=== PATIENT | male | born 1940 | race Caucasian/White ===

== ENCOUNTER 2018-05-14 14:16 | Inpatient (IN) ==
--- NOTE | 2018-05-14 14:47 | Emergency Department Note ---
Disposition Clinical Impression: Dyspnea Qualifiers: Dyspnea type: unspecified Qualified Code(s): R06.00 - Dyspnea, unspecified Disposition: Admitted As Inpatient Condition: Fair General Adult HPI - General Chief complaint: ED Shortness of Breath/Dyspnea Stated complaint: KIM Time Seen by Provider: 05/14/18 14:38 Source: patient, EMS Limitations: no limitations - History of Present Illness Pain Scale: 0 - Related Data Home Medications Medication Instructions Recorded Confirmed Aspirin [Lo-Dose Aspirin EC] 81 mg PO DAILY 01/06/17 05/14/18 Apixaban [Eliquis] 5 mg PO BID 12/03/17 05/14/18 Calcium Citrate 200 mg PO DAILY 12/03/17 05/14/18 Donepezil [Aricept] 10 mg PO HS 12/03/17 05/14/18 Ergocalciferol (VITAMIN D2) 8,000 unit PO DAILY 12/03/17 05/14/18 [Vitamin D2] Ezetimibe [Zetia] 10 mg PO DAILY 12/03/17 05/14/18 Furosemide [Lasix] 20 mg PO DAILY 12/03/17 05/14/18 Pnv95/Ferrous Fumarate/FA 1 each PO DAILY 12/03/17 05/14/18 [ Vitamin Tablet] Prosteon 2 tab PO DAILY 01/14/18 05/14/18 Docusate Sodium [Colace] 100 mg PO DAILY PRN 05/14/18 05/14/18 GuaiFENesin ER [Mucinex] 600 mg PO BID PRN 05/14/18 05/14/18 LevETIRAcetam [Roweepra] 500 mg PO BID 05/14/18 05/14/18 Morphine Sulfate SR (12 HR) [MS 15 mg PO Q12HR 05/14/18 05/14/18 Contin] Sennosides [Senna] 17.2 mg PO HS PRN 05/14/18 05/14/18 Previous Rx's Medication Instructions Recorded Omeprazole [PriLOSEC] 20 mg PO DAILY #30 capsule. 02/06/17 Carisoprodol [Soma] 350 mg PO BID PRN #60 05/09/17 Cyanocobalamin (Vitamin B-12) 1,000 mcg PO DAILY #30 tablet 07/08/17 [Vitamin B12] predniSONE [PredniSONE] 5 mg PO BIDWM #60 tablet 01/06/18 Dexamethasone [Decadron] 2 tab PO AD #36 tab 02/02/18 Promethazine [Phenergan] 25 mg PO Q6HR PRN #30 tablet 03/09/18 OxyCODONE Immed Rel [Roxicodone 10 10 mg PO Q6H PRN 30 Days #120 tab 05/05/18 MG] Ondansetron ODT [Zofran ODT] 4 mg PO Q6H PRN #10 tab.rapdis 05/11/18 Allergies Allergy/AdvReac Type Severity Reaction Status Date / Time atorvastatin AdvReac Muscle Pain Verified 05/14/18 19:39 simvastatin AdvReac Muscle Pain Verified 05/14/18 19:39 Past Medical History - Past Medical History Medical history: Reports: cancer, COPD, hyperlipidemia, hypertension, other Surgical history: Reports: appendectomy, cancer surgery, orthopedic, other, other Psychiatric history: Reports: no psych history - Social History Smoking Status: Current every day smoker Smokeless Tobacco Status: No Alcohol use: Reports: none Drug use: Reports: none Physical Exam - General Limitations: no limitations General appearance: alert, in no apparent distress Course Vital Signs Temperature 98.9 F 05/14/18 14:24 Pulse Rate 61 05/14/18 14:24 Respiratory Rate 20 05/14/18 14:24 Blood Pressure 116/73 05/14/18 14:24 O2 Sat by Pulse Oximetry 95 05/14/18 14:24 Temperature 98.9 F 05/14/18 14:24 Pulse Rate 62 05/14/18 19:19 Respiratory Rate 16 05/14/18 20:23 Blood Pressure 105/64 05/14/18 20:23 O2 Sat by Pulse Oximetry 96 05/14/18 19:19 Oxygen Delivery Oxygen Delivery Nasal Cannula Medical Decision Making - Lab Data Result diagrams: 05/14/18 14:38 05/14/18 14:38 Lab Results 05/14/18 05/14/18 05/14/18 Range/Units 14:38 14:38 14:47 WBC 3.1 L (4.3-11.1) K/mcL RBC 3.30 L (4.19-5.50) M/mcL Hgb 10.1 L (12.9-16.9) g/dL Hct 32.5 L (37.5-50.1) % MCV 98.5 (83.0-100.0) fL MCH 30.6 (28.0-33.3) pg MCHC 31.1 L (31.6-35.5) g/dL RDW 16.0 H (11.5-14.5) % Plt Count 229 (140-400) K/mcL MPV 9.4 (9.4-12.4) fL Sodium 137 (136-145) mEq/L Potassium 4.2 (3.5-5.1) mEq/L Chloride 100 (98-107) mEq/L Carbon Dioxide 34 H (23-29) mEq/L BUN 17 (8-23) mg/dL Creatinine 0.74 (0.70-1.30) mg/dL Est GFR ( Amer) > 60 (> 60) Est GFR (Non-Af Amer) > 60 (> 60) BUN/Creatinine Ratio 23 (6-26) Glucose 89 (70-105) mg/dL Calculated Osmolality 285 (280-300) Calcium 8.8 (8.6-10.3) mg/dL Total Bilirubin 0.3 (0.3-1.0) mg/dL Direct Bilirubin 0.1 (0.0-0.2) mg/dL Indirect Bilirubin 0.2 (0.0-1.2) mg/dL AST 32 (13-39) Units/L ALT 35 (7-52) Units/L Alkaline Phosphatase 58 (34-104) Units/L Troponin I 0.07 H* (< 0.04) ng/mL Serum Total Protein 5.5 L (6.4-8.9) g/dL Albumin 3.2 L (3.5-5.7) g/dL Globulin 2.3 L (2.4-3.5) g/dL Albumin/Globulin Ratio 1.4 (1.1-2.2) Urine Color (Yellow) Urine Clarity (Clear) Urine pH (5.0-8.0) pH Units Ur Specific [place] (1.010-1.025) Urine Protein (Neg-Trace) mg/dL Urine Glucose (UA) (Normal) mg/dL Urine Ketones (Negative) mg/dL Urine Blood (Negative) Urine Nitrite (Negative) Urine Bilirubin (Negative) Urine Urobilinogen (Normal) mg/dL Ur Leukocyte Esterase (Negative) Urine Microscopic RBC (0-3) per hpf Urine Microscopic WBC (0-3) per hpf Ur Squamous Epith Cells (None-Few) per lpf Urine Bacteria (None-Few) per hpf Hyaline Casts (None-Few) per lpf Urine Mucus (Few) 05/14/18 Range/Units 16:05 WBC (4.3-11.1) K/mcL RBC (4.19-5.50) M/mcL Hgb (12.9-16.9) g/dL Hct (37.5-50.1) % MCV (83.0-100.0) fL MCH (28.0-33.3) pg MCHC (31.6-35.5) g/dL RDW (11.5-14.5) % Plt Count (140-400) K/mcL MPV (9.4-12.4) fL Sodium (136-145) mEq/L Potassium (3.5-5.1) mEq/L Chloride (98-107) mEq/L Carbon Dioxide (23-29) mEq/L BUN (8-23) mg/dL Creatinine (0.70-1.30) mg/dL Est GFR ( Amer) (> 60) Est GFR (Non-Af Amer) (> 60) BUN/Creatinine Ratio (6-26) Glucose (70-105) mg/dL Calculated Osmolality (280-300) Calcium (8.6-10.3) mg/dL Total Bilirubin (0.3-1.0) mg/dL Direct Bilirubin (0.0-0.2) mg/dL Indirect Bilirubin (0.0-1.2) mg/dL AST (13-39) Units/L ALT (7-52) Units/L Alkaline Phosphatase (34-104) Units/L Troponin I (< 0.04) ng/mL Serum Total Protein (6.4-8.9) g/dL Albumin (3.5-5.7) g/dL Globulin (2.4-3.5) g/dL Albumin/Globulin Ratio (1.1-2.2) Urine Color Yellow (Yellow) Urine Clarity Clear (Clear) Urine pH 6.0 (5.0-8.0) pH Units Ur Specific [place] 1.023 (1.010-1.025) Urine Protein 30 H (Neg-Trace) mg/dL Urine Glucose (UA) Normal (Normal) mg/dL Urine Ketones Negative (Negative) mg/dL Urine Blood Negative (Negative) Urine Nitrite Negative (Negative) Urine Bilirubin Negative (Negative) Urine Urobilinogen Normal (Normal) mg/dL Ur Leukocyte Esterase Negative (Negative) Urine Microscopic RBC 0-3 (0-3) per hpf Urine Microscopic WBC 0-3 (0-3) per hpf Ur Squamous Epith Cells Many H (None-Few) per lpf Urine Bacteria None Seen (None-Few) per hpf Hyaline Casts Moderate H (None-Few) per lpf Urine Mucus Few (Few) Attestation Statement - Attestation Attestation: I examined this patient and my medical decision-making was reviewed with the [employer]ANSCRIBER/PA/Advanced Practice Nurse/Resident Physician. I agree with the documented findings, disposition and treatment plan as described except to the extent set forth below. I did review the previous record and the patient does have a history of metastatic prostate cancer was sent here today for the urology office and I did see the patient upon arrival and also spoke with the paramedics and they state that the patient was transferred here because of nausea. He said he has generalized pain that he does not know exactly why he is here. He does specifically deny any chest pain. No fever, vomiting. States his will be able to give a better history. Paramedics tell me that he was mildly hypoxemic however he does use home oxygen. Workup in progress including blood work, x-ray , EKG. [id number] I did review the patient's EKG showing a paced rhythm with a rate of 61 1503
[2018-05-14 15:39] LABS: Hematocrit 32.5 % (37.5-50.1); Hemoglobin 10.1 g/dL (12.9-16.9); Mean Corpuscular HGB Conc 31.1 g/dL (31.6-35.5); Mean Corpuscular Hemoglobin 30.6 pg (28.0-33.3); Mean Corpuscular Volume 98.5 fL (83.0-100.0); Mean Platelet Volume 9.4 fL (9.4-12.4); Platelet Count 229 K/mcL (140-400)
[2018-05-14 16:02] LABS: Alanine Aminotransferase 35 Units/L (7-52); Albumin 3.2 g/dL (3.5-5.7); Albumin/Globulin Ratio 1.4 (1.1-2.2); Alkaline Phosphatase 58 Units/L (34-104); Aspartate Amino Transferase 32 Units/L (13-39); BUN/Creatinine Ratio 23 (6-26); Bilirubin,Direct 0.1 mg/dL (0.0-0.2); Bilirubin,Indirect 0.2 mg/dL (0.0-1.2); Bilirubin,Total 0.3 mg/dL (0.3-1.0); Blood Urea Nitrogen 17 mg/dL (8-23); Calcium 8.8 mg/dL (8.6-10.3); Carbon Dioxide 34 mEq/L (23-29); Chloride 100 mEq/L (98-107); Globulin 2.3 g/dL (2.4-3.5); Glucose 89 mg/dL (70-105); Osmolality,Calculated 285 (280-300); Potassium 4.2 mEq/L (3.5-5.1); Sodium 137 mEq/L (136-145); Total Protein 5.5 g/dL (6.4-8.9); eGFR For Non-African Americans > 60 (> 60)
--- NOTE | 2018-05-14 16:02 | Emergency Department Note ---
Disposition Clinical Impression: HCAP (healthcare-associated pneumonia), Elevated troponin Dyspnea Qualifiers: Dyspnea type: unspecified Qualified Code(s): R06.00 - Dyspnea, unspecified Anemia Qualifiers: Anemia type: unspecified type Qualified Code(s): D64.9 - Anemia, unspecified Disposition: Admitted As Inpatient Condition: Fair Time of Disposition: 19:25 SOB HPI - General Chief Complaint: ED Shortness of Breath/Dyspnea Stated Complaint: KIM Time Seen by Provider: 05/14/18 14:38 Source: patient, EMS Limitations: no limitations Nursing Notes Reviewed: Yes Vital Signs Reviewed: Yes - History of Present Illness Patient is a 77-year-old male who presents to [facility] ED with a chief complaint of shortness of breath. States his symptoms have been ongoing for the last several days. Patient last had chemotherapy done last Friday. 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 There was concern by the cancer center that he was filling up with fluid so they sent him here for evaluation. Patient denies any chest pain, abdominal pain, problems with bowel movements. States he did have some diarrhea previously but this has since resolved. He does have difficulty with his urination and has bladder retention. states he was able to only urinate twice yesterday. Pt Subjective Complaint: shortness of breath Onset (ago): day(s) Severity: moderate Improves with: nothing Worsens with: exertion Associated symptoms: Denies: chest pain, fever, cough, nausea/vomiting, abdominal pain Treatment prior to arrival: oxygen Cough present: No Sputum production: No - Related Data Home oxygen amount: 2 liters Home Medications Medication Instructions Recorded Confirmed Aspirin [Lo-Dose Aspirin EC] 81 mg PO DAILY 01/06/17 05/14/18 Apixaban [Eliquis] 5 mg PO BID 12/03/17 05/14/18 Calcium Citrate 200 mg PO DAILY 12/03/17 05/14/18 Donepezil [Aricept] 10 mg PO HS 12/03/17 05/14/18 Ergocalciferol (VITAMIN D2) 8,000 unit PO DAILY 12/03/17 05/14/18 [Vitamin D2] Ezetimibe [Zetia] 10 mg PO DAILY 12/03/17 05/14/18 Furosemide [Lasix] 20 mg PO DAILY 12/03/17 05/14/18 Pnv95/Ferrous Fumarate/FA 1 each PO DAILY 12/03/17 05/14/18 [ Vitamin Tablet] Prosteon 2 tab PO DAILY 01/14/18 05/14/18 Docusate Sodium [Colace] 100 mg PO DAILY PRN 05/14/18 05/14/18 GuaiFENesin ER [Mucinex] 600 mg PO BID PRN 05/14/18 05/14/18 LevETIRAcetam [Roweepra] 500 mg PO BID 05/14/18 05/14/18 Morphine Sulfate SR (12 HR) [MS 15 mg PO Q12HR 05/14/18 05/14/18 Contin] Sennosides [Senna] 17.2 mg PO HS PRN 05/14/18 05/14/18 Previous Rx's Medication Instructions Recorded Omeprazole [PriLOSEC] 20 mg PO DAILY #30 capsule. 02/06/17 Carisoprodol [Soma] 350 mg PO BID PRN #60 05/09/17 Cyanocobalamin (Vitamin B-12) 1,000 mcg PO DAILY #30 tablet 07/08/17 [Vitamin B12] predniSONE [PredniSONE] 5 mg PO BIDWM #60 tablet 01/06/18 Dexamethasone [Decadron] 2 tab PO AD #36 tab 02/02/18 Promethazine [Phenergan] 25 mg PO Q6HR PRN #30 tablet 03/09/18 OxyCODONE Immed Rel [Roxicodone 10 10 mg PO Q6H PRN 30 Days #120 tab 05/05/18 MG] Ondansetron ODT [Zofran ODT] 4 mg PO Q6H PRN #10 tab.rapdis 05/11/18 Allergies Allergy/AdvReac Type Severity Reaction Status Date / Time atorvastatin AdvReac Muscle Pain Verified 05/14/18 19:39 simvastatin AdvReac Muscle Pain Verified 05/14/18 19:39 All systems ED: reviewed and negative except as stated. Past Medical History - Past Medical History Attestation: Yes The following information was validated with the patient. Source: patient Medical history: Reports: cancer, COPD, hyperlipidemia, hypertension, other Surgical history: Reports: appendectomy, cancer surgery, orthopedic, other, other Psychiatric history: Reports: no psych history - Social History Smoking Status: Current every day smoker Smokeless Tobacco Status: No Alcohol use: Reports: none Drug use: Reports: none Physical Exam - General Limitations: no limitations General appearance: alert, in no apparent distress - Head Head exam: atraumatic, normocephalic, normal inspection - Eye Eye exam: Present: EOMI - ENT ENT exam: normal exam, normal oropharynx, mucous membranes moist - Neck Neck exam: Present: normal inspection, full ROM, trachea midline - Chest Chest inspection: Present: normal inspection, symmetric chest wall rise - Respiratory Respiratory exam: Present: wheezes, other (rhonchi b/l) - Cardiovascular Cardiovascular exam: Present: regular rate, normal rhythm, normal heart sounds - Abdominal Exam Abdominal exam: Present: soft, Non-Tender. Absent: tenderness, distention, guarding, rebound, rigidity - Extremities Exam Extremities exam: Present: normal inspection, full ROM. Absent: tenderness, pedal edema - Back Exam Back exam: Present: normal inspection, full ROM. Absent: tenderness - Neurological Exam Neurological exam: Present: alert, oriented X3 - Psychiatric Psychiatric exam: Present: normal affect, normal mood - Skin Skin exam: Present: warm, dry, intact, normal color Course Course Narrative: Patient seen and examined. Shortness of breath worsening over the last several days. Patient with metastatic cancer to lungs. We will get basic lab work, chest x-ray, EKG. Since patient does have active cancer, there is concern for possible pulmonary embolus. If renal function is okay, will likely do a CTA of the chest. - Reevaluation(s) Reevaluation #1: Renal function normal. Chest x-ray shows some possible signs of some pulmonary edema. However his troponin is also mildly elevated at 0.07. We will go ahead and get a CTA of the chest to evaluate for pulmonary embolus. Suspect the troponin elevation is more likely secondary to demand ischemia, not acs Time: 16:27 Reevaluation #2: CTA of the chest shows multifocal pneumonia. We will go ahead and start vancomycin and Zosyn. I discussed with the hospitalist for admission. He has been accepted. He would like blood cultures ordered as well. These have been added. Time: 19:25 Vital Signs Temperature 98.9 F 05/14/18 14:24 Pulse Rate 61 05/14/18 14:24 Respiratory Rate 20 05/14/18 14:24 Blood Pressure 116/73 05/14/18 14:24 O2 Sat by Pulse Oximetry 95 05/14/18 14:24 Temperature 98.1 F 05/14/18 20:45 Pulse Rate 59 05/14/18 20:45 Respiratory Rate 16 05/14/18 20:45 Blood Pressure 120/69 05/14/18 20:45 O2 Sat by Pulse Oximetry 96 05/14/18 20:45 Oxygen Delivery Oxygen Delivery Nasal Cannula Shortness of Breath/Dyspnea - Medical Records Medical records reviewed: Yes I reviewed the patient's medical records. - Lab Data Lab results reviewed: Yes I reviewed the patient's lab results. Result diagrams: 05/14/18 14:38 05/14/18 14:38 Lab Results 05/14/18 05/14/18 05/14/18 Range/Units 14:38 14:38 14:47 WBC 3.1 L (4.3-11.1) K/mcL RBC 3.30 L (4.19-5.50) M/mcL Hgb 10.1 L (12.9-16.9) g/dL Hct 32.5 L (37.5-50.1) % MCV 98.5 (83.0-100.0) fL MCH 30.6 (28.0-33.3) pg MCHC 31.1 L (31.6-35.5) g/dL RDW 16.0 H (11.5-14.5) % Plt Count 229 (140-400) K/mcL MPV 9.4 (9.4-12.4) fL Sodium 137 (136-145) mEq/L Potassium 4.2 (3.5-5.1) mEq/L Chloride 100 (98-107) mEq/L Carbon Dioxide 34 H (23-29) mEq/L BUN 17 (8-23) mg/dL Creatinine 0.74 (0.70-1.30) mg/dL Est GFR ( Amer) > 60 (> 60) Est GFR (Non-Af Amer) > 60 (> 60) BUN/Creatinine Ratio 23 (6-26) Glucose 89 (70-105) mg/dL Calculated Osmolality 285 (280-300) Calcium 8.8 (8.6-10.3) mg/dL Total Bilirubin 0.3 (0.3-1.0) mg/dL Direct Bilirubin 0.1 (0.0-0.2) mg/dL Indirect Bilirubin 0.2 (0.0-1.2) mg/dL AST 32 (13-39) Units/L ALT 35 (7-52) Units/L Alkaline Phosphatase 58 (34-104) Units/L Troponin I 0.07 H* (< 0.04) ng/mL Serum Total Protein 5.5 L (6.4-8.9) g/dL Albumin 3.2 L (3.5-5.7) g/dL Globulin 2.3 L (2.4-3.5) g/dL Albumin/Globulin Ratio 1.4 (1.1-2.2) Urine Color (Yellow) Urine Clarity (Clear) Urine pH (5.0-8.0) pH Units Ur Specific [place] (1.010-1.025) Urine Protein (Neg-Trace) mg/dL Urine Glucose (UA) (Normal) mg/dL Urine Ketones (Negative) mg/dL Urine Blood (Negative) Urine Nitrite (Negative) Urine Bilirubin (Negative) Urine Urobilinogen (Normal) mg/dL Ur Leukocyte Esterase (Negative) Urine Microscopic RBC (0-3) per hpf Urine Microscopic WBC (0-3) per hpf Ur Squamous Epith Cells (None-Few) per lpf Urine Bacteria (None-Few) per hpf Hyaline Casts (None-Few) per lpf Urine Mucus (Few) 05/14/18 Range/Units 16:05 WBC (4.3-11.1) K/mcL RBC (4.19-5.50) M/mcL Hgb (12.9-16.9) g/dL Hct (37.5-50.1) % MCV (83.0-100.0) fL MCH (28.0-33.3) pg MCHC (31.6-35.5) g/dL RDW (11.5-14.5) % Plt Count (140-400) K/mcL MPV (9.4-12.4) fL Sodium (136-145) mEq/L Potassium (3.5-5.1) mEq/L Chloride (98-107) mEq/L Carbon Dioxide (23-29) mEq/L BUN (8-23) mg/dL Creatinine (0.70-1.30) mg/dL Est GFR ( Amer) (> 60) Est GFR (Non-Af Amer) (> 60) BUN/Creatinine Ratio (6-26) Glucose (70-105) mg/dL Calculated Osmolality (280-300) Calcium (8.6-10.3) mg/dL Total Bilirubin (0.3-1.0) mg/dL Direct Bilirubin (0.0-0.2) mg/dL Indirect Bilirubin (0.0-1.2) mg/dL AST (13-39) Units/L ALT (7-52) Units/L Alkaline Phosphatase (34-104) Units/L Troponin I (< 0.04) ng/mL Serum Total Protein (6.4-8.9) g/dL Albumin (3.5-5.7) g/dL Globulin (2.4-3.5) g/dL Albumin/Globulin Ratio (1.1-2.2) Urine Color Yellow (Yellow) Urine Clarity Clear (Clear) Urine pH 6.0 (5.0-8.0) pH Units Ur Specific [place] 1.023 (1.010-1.025) Urine Protein 30 H (Neg-Trace) mg/dL Urine Glucose (UA) Normal (Normal) mg/dL Urine Ketones Negative (Negative) mg/dL Urine Blood Negative (Negative) Urine Nitrite Negative (Negative) Urine Bilirubin Negative (Negative) Urine Urobilinogen Normal (Normal) mg/dL Ur Leukocyte Esterase Negative (Negative) Urine Microscopic RBC 0-3 (0-3) per hpf Urine Microscopic WBC 0-3 (0-3) per hpf Ur Squamous Epith Cells Many H (None-Few) per lpf Urine Bacteria None Seen (None-Few) per hpf Hyaline Casts Moderate H (None-Few) per lpf Urine Mucus Few (Few) - Radiology Data Radiology results reviewed: Yes I reviewed the patient's radiology results. Chest X-Ray 05/14/18 14:39 IMPRESSION: 1. Poorly expanded lungs. Increased interstitial markings could be due to vascular crowding or pulmonary edema. D/ / Lokesh Conn MD / Lokesh Conn MD Interpreting Provider: Lokesh Conn MD
[2018-05-14 16:16] LABS: Bilirubin,Urine Negative (Negative); Blood,Urine Negative (Negative); Clarity,Urine Clear (Clear); Color,Urine Yellow (Yellow); Glucose,Urine (UA) Normal (Normal); Ketones,Urine Negative (Negative); Leukocyte Esterase,Urine Negative (Negative); Nitrite,Urine Negative (Negative); Protein,Urine 30 mg/dL (Neg-Trace); Specific Gravity,Urine 1.023 (1.010-1.025); Urobilinogen,Urine Normal (Normal)
[2018-05-14 16:19] LABS: Bacteria,Urine None Seen per hpf (None-Few); Hyaline Casts,Urine Moderate per lpf (None-Few); RBC,Urine 0-3 per hpf (0-3); Squamous Epithelial Cell,Urine Many per lpf (None-Few); WBC,Urine 0-3 per hpf (0-3)
[2018-05-14] MEDS ORDERED: Isovue-370 500 ML INFUS..BTL IV ONE (16:26)
[2018-05-14 16:38] LABS: Mucus,Urine Few (Few)
[2018-05-14] MEDS ORDERED: Piperacillin/Tazobactam 3.375 GM in 0.9 % Sodium Chloride Mini Bag 100 ML IVPB ONE (18:25)
[2018-05-14] MEDS ORDERED: Ondansetron 4 MG/2 ML VIAL IVP ONE (18:48)
[2018-05-14] MEDS ORDERED: *HR* HYDROmorphone (PF) 1 MG/ML SYRINGE IVP ONE (18:48)
[2018-05-15] MEDS ORDERED: Naloxone 0.4 MG/ML INJ IVP PRN (01:01)
--- NOTE | 2018-05-15 01:25 | Internal Med History&Physical ---
Date of Encounter: 05/15/18 Time of Encounter: 01: Internal Medicine - H&P: HPI Chief complaint: Weakness, SOB History of present illness: Mr. Grant is a 77 year old male metastatic prostate cancer (s/p prostatectomy) to the spine, COPD, CAD with an EF of 50% and BPH with a chief complaint of shortness of breath. Patient reports that he has been feeling unwell for the past week with reported episodes of diarrhea, nausea and dry heaves. Patient has a history of chronic diarrhea is currently receiving chemotherapy with Taxotere, the last of which she received on Friday. Patient reported today to his oncologist for an unscheduled visit due to worsening edema in the upper and lower extremities, shortness of breath, wheezing and weakness. Patient denies chest pain, fever, chills. He does endorse worsening lower extremity edema and difficulty urinating for the past 2 days. Past Med Surg Social Fam HX - Past Medical History Medical history: cancer, COPD, hyperlipidemia, hypertension, other Additional medical history: prostate cancer Psychiatric history: no psych history - Past Surgical History Surgical History: appendectomy, cancer surgery, orthopedic, other, other Additional surgical history: back surgery effusion, rotator cuff - Social History Smoking Status: Current every day smoker Smokeless Tobacco Status: No Alcohol use: none Drug use: none - Family History Mother Living Status: Hx Family Cancer: Yes (kidney) Hx Family Endocrine Disorder: Yes (kidney removed) Internal Medicine - H&P: Meds Aspirin [Lo-Dose Aspirin EC] 81 mg PO DAILY 01/06/17 [History] Omeprazole [PriLOSEC] 20 mg PO DAILY #30 capsule. 02/06/17 [Rx] Carisoprodol [Soma] 350 mg PO BID PRN #60 05/09/17 [Rx] Cyanocobalamin (Vitamin B-12) [Vitamin B12] 1,000 mcg PO DAILY #30 tablet [Rx] Apixaban [Eliquis] 5 mg PO BID 12/03/17 [History] Calcium Citrate 200 mg PO DAILY 12/03/17 [History] Donepezil [Aricept] 10 mg PO HS 12/03/17 [History] Ergocalciferol (VITAMIN D2) [Vitamin D2] 8,000 unit PO DAILY 12/03/17 [History] Ezetimibe [Zetia] 10 mg PO DAILY 12/03/17 [History] Furosemide [Lasix] 20 mg PO DAILY 12/03/17 [History] Pnv95/Ferrous Fumarate/FA [ Vitamin Tablet] 1 each PO DAILY 12/03/17 [ History] predniSONE [PredniSONE] 5 mg PO BIDWM #60 tablet 01/06/18 [Rx] Prosteon 2 tab PO DAILY 01/14/18 [History] Dexamethasone [Decadron] 2 tab PO AD #36 tab 02/02/18 [Rx] Promethazine [Phenergan] 25 mg PO Q6HR PRN #30 tablet 03/09/18 [Rx] OxyCODONE Immed Rel [Roxicodone 10 MG] 10 mg PO Q6H PRN 30 Days #120 tab [Rx] Ondansetron ODT [Zofran ODT] 4 mg PO Q6H PRN #10 tab.rapdis 05/11/18 [Rx] Docusate Sodium [Colace] 100 mg PO DAILY PRN 05/14/18 [History] GuaiFENesin ER [Mucinex] 600 mg PO BID PRN 05/14/18 [History] LevETIRAcetam [Roweepra] 500 mg PO BID 05/14/18 [History] Morphine Sulfate SR (12 HR) [MS Contin] 15 mg PO Q12HR 05/14/18 [History] Sennosides [Senna] 17.2 mg PO HS PRN 05/14/18 [History] 3 Allergy/AdvReac Type Severity Reaction Status Date / Time atorvastatin AdvReac Muscle Pain Verified 05/14/18 19:39 simvastatin AdvReac Muscle Pain Verified 05/14/18 19:39 All Systems PM: A 10-system review of systems was performed and is negative for pertinent findings except as documented above in the HPI. - Constitutional Constitutional: no chills, no fever(s), no night sweats - EENT Eyes: no change in vision, no discharge, no pain, no photophobia Ears: no ear discharge, no ear pain, no tinnitus Nose, mouth and throat: no dysphagia, no nasal discharge, no neck pain, no sore throat - Cardiovascular Cardiovascular ROS IM: no chest pain, no diaphoresis, no dyspnea, no lightheadedness, no palpitations, no syncope - Respiratory Respiratory: no cough, no dyspnea, no wheezing, no excessive phlegm production - Gastrointestinal Gastrointestinal: no abdominal pain, no diarrhea, no hematemesis, no hematochezia, no melena, no nausea, no vomiting - Musculoskeletal Musculoskeletal ROS IM: no numbness, no tingling - Integumentary Integumentary IM: no rash, no unusual bruising - Neurological Neurological ROS: no confusion, no convulsions, no focal weakness, no numbness, no tingling, no tremor(s) - Hematologic/Lymphatic Hematologic/Lymphatic: no easy bruising - Constitutional Vitals: Temp Pulse Resp BP Pulse Ox 98.4 F 61 16 127/74 94 05/14/18 23:22 05/14/18 23:22 05/14/18 23:22 05/14/18 23:22 05/14/18 23:22 Exam: General: Alert and oriented 3 Skin:Normal color, no rash, no lesions. HEENT:EOM, pupils equal, round and reactive. Cardiovascular:Normal S1 & S2, no rubs, murmurs or gallops. No JVD. Pulse regular. Lungs:Normal breath sounds, no wheezes or crackles. Though there appears to be a lot of upper airway congestion. Abdomen:Soft, distended but non-tender, no rigidity. Extremities:No deformity, 1+ pitting edema, no joint swelling or clubbing. Neurological:Normal cognition and motor skills. Pulses:Carotid and radial pulses normal +2. Rest of the physical exam is non contributory Internal Med - H&P Results - Labs CBC & Chem 7: 05/15/18 01:20 05/15/18 01:20 - Assessment and plan (1) Acute respiratory failure with hypoxemia Current Visit: Yes Status: Acute Assessment and plan: Chest x-ray shows increasing consolidative changes involving the right middle and right lower lobes. With new left lower lobe lung nodule. Possible healthcare associated pneumonia however cannot rule out metastatic disease. Patient started on broad spectrum antibiotics. Given patient's lower extremity edema confirmed concern for mild superimposed CHF exacerbation. We will give short course of Lasix. Monitor I's and O. Additionally, patient has significant upper airway congestion. We will schedule respiratory treatments with suctioning. Recommend pulmonary consult in the morning. Order placed but not called. (2) Elevated troponin Current Visit: Yes Status: Acute (3) HCAP (healthcare-associated pneumonia) Current Visit: Yes Status: Acute Assessment and plan: Broad-spectrum antibiotics. Supportive care. (4) Anemia Current Visit: Yes Status: Chronic Assessment and plan: Likely secondary to chronic disease and reports a recent GI bleed. Trend H&H Qualifiers: Anemia type: unspecified type Qualified Code(s): D64.9 - Anemia, unspecified (5) Cancer associated pain Current Visit: No Status: Chronic Assessment and plan: Continue patient's home analgesic regimen (6) CHF (congestive heart failure) Current Visit: No Status: Acute Assessment and plan: History of congestive heart failure with diastolic dysfunction (EF 50%). He reports of worsening lower extremity edema, possible mild exacerbation present. Patient received 60 mg of Lasix IV push after arriving to the floor. Strict I 's and O's, daily weights. Reassess in the morning Lasix regimen. Qualifiers: Heart failure type: diastolic Qualified Code(s): I50.31 - Acute diastolic ( congestive) heart failure (7) Leukopenia Current Visit: Yes Status: Acute Assessment and plan: Leukopenia possibly secondary to chemotherapy versus sepsis. Patient received his last dose of Taxotere on Friday. We will treat for possible pneumonia as well as trend CBC. Qualifiers: Qualified Code(s): D72.819 - Decreased white blood cell count, unspecified (8) Prostate cancer Current Visit: No Status: Chronic - Time Spent With Patient Total time spent is greater than 50% in coordination of care (as documented) at patient's floor/unit and/or counseling patient:
[2018-05-15] MEDS ORDERED: Furosemide 20 MG/2 ML VIAL IVP ONE (01:33)
[2018-05-15 02:04] LABS: Hematocrit 31.8 % (37.5-50.1); Mean Corpuscular HGB Conc 31.4 g/dL (31.6-35.5); Mean Corpuscular Hemoglobin 31.2 pg (28.0-33.3); Mean Corpuscular Volume 99.1 fL (83.0-100.0); Mean Platelet Volume 9.8 fL (9.4-12.4); Platelet Count 239 K/mcL (140-400); Red Blood Count 3.21 M/mcL (4.19-5.50)
[2018-05-15] MEDS ORDERED: Ipratropium/Albuterol Neb 3 ML IH ONE (02:13)
[2018-05-15 02:16] LABS: Alanine Aminotransferase 32 Units/L (7-52); Albumin/Globulin Ratio 1.3 (1.1-2.2); Alkaline Phosphatase 55 Units/L (34-104); Aspartate Amino Transferase 29 Units/L (13-39); BUN/Creatinine Ratio 22 (6-26); Bilirubin,Total 0.3 mg/dL (0.3-1.0); Blood Urea Nitrogen 17 mg/dL (8-23); Calcium 8.4 mg/dL (8.6-10.3); Carbon Dioxide 33 mEq/L (23-29); Chloride 102 mEq/L (98-107); Globulin 2.3 g/dL (2.4-3.5); Glucose 108 mg/dL (70-105); Osmolality,Calculated 288 (280-300); Sodium 138 mEq/L (136-145); Total Protein 5.3 g/dL (6.4-8.9); eGFR For Non-African Americans > 60 (> 60)
[2018-05-15] MEDS: Ipratropium/Albuterol Neb 3 ML IH SCH ×6 (02:22→22:59)
[2018-05-15] MEDS ORDERED: Furosemide 40 MG/4 ML VIAL IVP ONE (02:37)
[2018-05-15] MEDS ORDERED: Furosemide 40 MG/4 ML VIAL ONE (02:41)
[2018-05-15] MEDS: *HR* Morphine Sulfate SR (12 HR) 15 MG TABLET.ER PO SCH ×2 (06:22→17:42)
[2018-05-15] MEDS ORDERED: ZETIA 10MG PO SCH (09:00)
[2018-05-15] MEDS: levETIRAcetam 250 MG TABLET PO SCH ×2 (10:03→21:17)
[2018-05-15] MEDS: Apixaban 5 MG TABLET PO SCH ×2 (10:03→21:17)
[2018-05-15] MEDS: Piperacillin/Tazobactam 3.375 GM in 0.9 % Sodium Chloride Mini Bag 100 ML IVPB SCH ×2 (10:03→17:43)
[2018-05-15] MEDS: Aspirin Enteric Coated 81 MG Tablet PO SCH (10:03)
--- NOTE | 2018-05-15 10:49 | Internal Med Progress Note ---
Hospitalist Progress Note - Encounter Date of Encounter: 05/15/18 Time of Encounter: 10:46 - Subjective Interval History: Patient was short of breath overnight and this morning, requiring BIPAP. He is complaining of edema in bilateral lower extremities. He denies chest pain, fevers/chills, n/v, diarrhea, abdominal pain. - Exam Vitals: Temp Pulse Resp BP Pulse Ox 97.3 F L 44 17 103/64 97 05/15/18 06:55 05/15/18 06:55 05/15/18 07:30 05/15/18 06:55 05/15/18 07:30 Exam: Gen: Alert and oriented 3 Skin: Normal color, no rash, no lesions. Cardiovascular:Normal S1 & S2 Lungs: Limited exam due to patient body habitus and weakness. Poor inspiratory effort. Coarse upper airway sounds. End expiratory rhonchi/wheezing. Abdomen:Soft, distended but non-tender, no rigidity. Extremities:No deformity, 1+ pitting edema bilateral lower extremities. Neurological:Normal cognition and motor skills. Pulses:Carotid and radial pulses normal +2. - Assessment and Plan (1) Acute respiratory failure with hypoxemia Current Visit: Yes Status: Acute Assessment and Plan: Chest x-ray shows increasing consolidative changes involving the right middle and right lower lobes. With new left lower lobe lung nodule. Possible healthcare associated pneumonia however cannot rule out metastatic disease. Patient started on broad spectrum antibiotics. Given patient's lower extremity edema confirmed concern for mild superimposed CHF exacerbation. We will give short course of Lasix. Monitor I's and O. Additionally, patient has significant upper airway congestion. We will schedule respiratory treatments with suctioning. This AM he required BIPAP due to dyspnea. - Continue vancomycin, Zosyn, follow-up sputum cultures. - IV Lasix 20 mg IV BID, fluid restrict - Prednisone 40 mg - Consult Pulmonology, may need bronchoscopy to rule out metastatic disease. - BIPAP as needed, wean O2 as tolerated. Will obtain ABG if patient worsens in resp status. (2) Elevated troponin Current Visit: Yes Status: Acute Assessment and Plan: Troponin increasing since admission to 0.07, 0.10, 0.12 - Patient denies chest pain since admission. - He is already on Eliquis and aspirin - Likely this is demand ischemia - Currently patient not stable for any further cardiac workup. Will repeat troponin, and obtain EKG. There is a chance he would be a candidate for adjusting medication, but unsure if further interventions would be appropriate. Will consult Cardiology if troponin remains elevated or if EKG findings are concerning. (3) HCAP (healthcare-associated pneumonia) Current Visit: Yes Status: Acute Assessment and Plan: Broad-spectrum antibiotics. Supportive care. Does not appear to be septic, though he will need close monitoring as he does have leukopenia on chemotherapy, and tachypnea. - Continue Vancomycin, Zosyn - Obtain sputum cultures - Follow-up blood cultures. (4) CHF (congestive heart failure) Current Visit: No Status: Acute Assessment and Plan: History of congestive heart failure with diastolic dysfunction (EF 50%). He reports of worsening lower extremity edema. CXR showed vascular congestion, likely pulm edema. BNP is 499, which is above his baseline. Patient received 60 mg of Lasix IV push after arriving to the floor. - Strict I's and O's, daily weights. - Will give 20 mg IV Lasix BID and reassess tomorrow in AM. - Fluid restriction (5) Cancer associated pain Current Visit: No Status: Chronic Assessment and Plan: Continue patient's home analgesic regimen He is also on Prednisone 5 mg daily at home. (6) Anemia Current Visit: Yes Status: Chronic Assessment and Plan: Likely secondary to chronic disease and reports a recent GI bleed. Trend H&H (7) Prostate cancer Current Visit: No Status: Chronic (8) Leukopenia Current Visit: Yes Status: Acute Assessment and Plan: Leukopenia possibly secondary to chemotherapy versus sepsis. Patient received his last dose of Taxotere on Friday. We will treat for possible pneumonia as well as trend CBC. - Time Spent with Patient Total time spent is greater than 50% in coordination of care (as documented) at patient's floor/unit and/or counseling patient: Internal Medicine: Result - Labs CBC & Chem 7: 05/15/18 01:20 05/15/18 01:20 Labs: Short CBC 05/15/18 Range/Units 01:20 WBC 2.8 L (4.3-11.1) K/mcL Hgb 10.0 L (12.9-16.9) g/dL Hct 31.8 L (37.5-50.1) % Plt Count 239 (140-400) K/mcL BMP 05/15/18 01:20 Sodium 138 Potassium 4.0 Chloride 102 Carbon Dioxide 33 H BUN 17 Creatinine 0.78 Glucose 108 H Calcium 8.4 L Cardiac Enzymes 05/15/18 05/15/18 Range/Units 01:20 07:11 Troponin I 0.10 H* 0.12 H* (< 0.04) ng/mL Liver Function 05/15/18 Range/Units 01:20 Total Bilirubin 0.3 (0.3-1.0) mg/dL AST 29 (13-39) Units/L ALT 32 (7-52) Units/L Alkaline Phosphatase 55 (34-104) Units/L Albumin 3.0 L (3.5-5.7) g/dL Consult Discharge Plan - Plan Referrals: Ramiro Kwan MD [Primary Care Provider] - (4) CHF (congestive heart failure) Qualifiers: Heart failure type: diastolic Qualified Code(s): I50.31 - Acute diastolic ( congestive) heart failure (6) Anemia Qualifiers: Anemia type: unspecified type Qualified Code(s): D64.9 - Anemia, unspecified (8) Leukopenia Qualifiers: Leukopenia type: unspecified Qualified Code(s): D72.819 - Decreased white blood cell count, unspecified
[2018-05-15] MEDS: Furosemide 20 MG/2 ML VIAL IVP SCH ×2 (12:41→17:42)
[2018-05-15] MEDS: *HR* OxyCODONE Immed Rel 5 MG TABLET PO PRN ×2 (12:42→21:17)
[2018-05-15] MEDS: Sennosides 8.6 MG TABLET PO PRN (12:42)
[2018-05-15] MEDS: predniSONE 20 MG TABLET PO SCH (12:42)
--- NOTE | 2018-05-15 14:38 | Pulmonology Consult Note ---
Date of Encounter: 05/15/18 Time of Encounter: 14:00 Assessment and Plan (1) Acute and chronic respiratory failure Current Visit: Yes Status: Acute Patient has acute on chronic hypoxic respiratory failure patient is almost back to his baseline oxygen requirements and he is on on 3 L patient usually home oxygen requirement is 2 L/m. Patient has acceptable oxygenation and ventilation Qualifiers: Qualified Code(s): J96.21 - Acute and chronic respiratory failure with hypoxia (2) HCAP (healthcare-associated pneumonia) Current Visit: Yes Status: Acute Looks like patient has on and off aspiration patient has the consolidative changes on the right side which is consistent with aspiration will need formal swallow evaluation with speech. To continue broad-spectrum antibiotics and steroids. (3) CHF (congestive heart failure) Current Visit: No Status: Acute Patient congestive heart failure diuresis according to primary team. Qualifiers: Heart failure type: diastolic Qualified Code(s): I50.31 - Acute diastolic ( congestive) heart failure History of Present Illness Consult date: 05/15/18 Requesting physician: Bladimir Sanchez Reason for consult: dyspnea, cough, abnormal CXR/CT Chief complaint: Shortness of breath, cough with sputum production History of present illness: 77-year-old male with past medical history significant for metastatic prostate cancer to spine, lungs which was diagnosed of January patient is on chemotherapy finished this Friday. Patient has systolic heart failure with EF of 50% a few days had difficult urination nausea vomiting and dry heaving looks like there is a possibility of aspiration while eating. Patient has on and off cough or sputum production was not feeling well is why he came to the ER where a CT scan shows bilateral pneumonia more to worsening right middle lobe and right upper lobe some endobronchial secretion CT chest did not show evidence of any endobronchial obstruction and collapse, patient denies any fever or chills denies any other constitutional symptoms denies any chest pain, chest tightness , denies any palpitations syncope. Patient denies any GERD symptoms. Patient is here for acute on chronic hypoxic respiratory failure pneumonia pulmonary was consulted for further evaluation and need for bronchoscopy. Past Med Surg Social Fam HX - Past Medical History Medical history: cancer, COPD, hyperlipidemia, hypertension, other Additional medical history: prostate cancer Psychiatric history: no psych history - Past Surgical History Surgical History: appendectomy, cancer surgery, orthopedic, other, other Additional surgical history: back surgery effusion, rotator cuff - Social History Smoking Status: Current every day smoker Smokeless Tobacco Status: No Alcohol use: none Drug use: none - Family History Mother Living Status: Hx Family Cancer: Yes (kidney) Hx Family Endocrine Disorder: Yes (kidney removed) Medications and Allergies Aspirin [Lo-Dose Aspirin EC] 81 mg PO DAILY 01/06/17 [History] Omeprazole [PriLOSEC] 20 mg PO DAILY #30 capsule. 02/06/17 [Rx] Carisoprodol [Soma] 350 mg PO BID PRN #60 05/09/17 [Rx] Cyanocobalamin (Vitamin B-12) [Vitamin B12] 1,000 mcg PO DAILY #30 tablet [Rx] Apixaban [Eliquis] 5 mg PO BID 12/03/17 [History] Calcium Citrate 200 mg PO DAILY 12/03/17 [History] Donepezil [Aricept] 10 mg PO HS 12/03/17 [History] Ergocalciferol (VITAMIN D2) [Vitamin D2] 8,000 unit PO DAILY 12/03/17 [History] Ezetimibe [Zetia] 10 mg PO DAILY 12/03/17 [History] Furosemide [Lasix] 20 mg PO DAILY 12/03/17 [History] Pnv95/Ferrous Fumarate/FA [ Vitamin Tablet] 1 each PO DAILY 12/03/17 [ History] predniSONE [PredniSONE] 5 mg PO BIDWM #60 tablet 01/06/18 [Rx] Prosteon 2 tab PO DAILY 01/14/18 [History] Dexamethasone [Decadron] 2 tab PO AD #36 tab 02/02/18 [Rx] Promethazine [Phenergan] 25 mg PO Q6HR PRN #30 tablet 03/09/18 [Rx] OxyCODONE Immed Rel [Roxicodone 10 MG] 10 mg PO Q6H PRN 30 Days #120 tab [Rx] Ondansetron ODT [Zofran ODT] 4 mg PO Q6H PRN #10 tab.rapdis 05/11/18 [Rx] Docusate Sodium [Colace] 100 mg PO DAILY PRN 05/14/18 [History] GuaiFENesin ER [Mucinex] 600 mg PO BID PRN 05/14/18 [History] LevETIRAcetam [Roweepra] 500 mg PO BID 05/14/18 [History] Morphine Sulfate SR (12 HR) [MS Contin] 15 mg PO Q12HR 05/14/18 [History] Sennosides [Senna] 17.2 mg PO HS PRN 05/14/18 [History] 3 Allergy/AdvReac Type Severity Reaction Status Date / Time atorvastatin AdvReac Muscle Pain Verified 05/14/18 19:39 simvastatin AdvReac Muscle Pain Verified 05/14/18 19:39 All Systems: The remainder of the systems were reviewed and are negative Physical Examination Vital Signs: Vital Signs, Last 4 Hours Temp Pulse Resp BP Pulse Ox 05/15/18 11:05 20 96 05/15/18 10:48 97.8 F 42 20 111/64 96 Auscultation: bilateral: diminished breath sounds (Bilateral bibasilar diminished breath sounds), rales (scattered rales ) Cardiovascular: regular rate and rhythm Results - Laboratory Findings CBC and BMP: 05/15/18 01:20 05/15/18 01:20 Abnormal lab findings: Abnormal lab results WBC 2.8 K/mcL (4.3-11.1) L 05/15/18 01:20 RBC 3.21 M/mcL (4.19-5.50) L 05/15/18 01:20 Hgb 10.0 g/dL (12.9-16.9) L 05/15/18 01:20 Hct 31.8 % (37.5-50.1) L 05/15/18 01:20 MCHC 31.4 g/dL (31.6-35.5) L 05/15/18 01:20 RDW 16.0 % (11.5-14.5) H 05/15/18 01:20 Carbon Dioxide 33 mEq/L (23-29) H 05/15/18 01:20 Glucose 108 mg/dL (70-105) H 05/15/18 01:20 POC Glucose 120 mg/dL (70-99) H 05/15/18 10:52 Calcium 8.4 mg/dL (8.6-10.3) L 05/15/18 01:20 Troponin I 0.11 ng/mL (< 0.04) H* 05/15/18 12:39 B-Natriuretic Peptide 499 pg/mL (Less than 100) H 05/15/18 01:13 Serum Total Protein 5.3 g/dL (6.4-8.9) L 05/15/18 01:20 Albumin 3.0 g/dL (3.5-5.7) L 05/15/18 01:20 Globulin 2.3 g/dL (2.4-3.5) L 05/15/18 01:20 Urine Protein 30 mg/dL (Neg-Trace) H 05/14/18 16:05 Ur Squamous Epith Cells Many per lpf (None-Few) H 05/14/18 16:05 Hyaline Casts Moderate per lpf (None-Few) H 05/14/18 16:05 - Clinical Findings Intake & Output: Intake & Output 05/14/18 05/15/18 05/15/18 23:59 07:59 15:59 Intake Total 250 / 250 460 / 460 Output Total 3100 / 3100 400 / 400 Balance -2850 / -2850 60 / 60 Weight 93.8 kg Consult Discharge Plan - Plan Referrals: Ramiro Kwan MD [Primary Care Provider] -
[2018-05-15] MEDS ORDERED: *HR* Promethazine 25 MG/ML VIAL ONE (20:16)
[2018-05-16] MEDS: Piperacillin/Tazobactam 3.375 GM in 0.9 % Sodium Chloride Mini Bag 100 ML IVPB SCH ×3 (01:05→16:46)
[2018-05-16 04:09] LABS: Basophils % 0.4 %; Hematocrit 31.4 % (37.5-50.1); Hemoglobin 10.4 g/dL (12.9-16.9); Immature Granulocytes % 1.1 % (0-4); Lymphocytes # 0.3 K/mcL (0.6-4.6); Lymphocytes % 10.7 %; Mean Corpuscular HGB Conc 33.1 g/dL (31.6-35.5); Mean Corpuscular Hemoglobin 31.1 pg (28.0-33.3); Mean Platelet Volume 9.7 fL (9.4-12.4); Monocytes # 0.7 K/mcL (0.0-1.3); Monocytes % 25.8 %; Neutrophils # 1.7 K/mcL (1.6-8.9); Platelet Count 240 K/mcL (140-400); Red Blood Count 3.34 M/mcL (4.19-5.50)
[2018-05-16] MEDS: Ipratropium/Albuterol Neb 3 ML IH SCH ×6 (04:11→23:42)
[2018-05-16 04:26] LABS: BUN/Creatinine Ratio 22 (6-26); Blood Urea Nitrogen 20 mg/dL (8-23); Calcium 8.6 mg/dL (8.6-10.3); Carbon Dioxide 33 mEq/L (23-29); Chloride 96 mEq/L (98-107); Glucose 166 mg/dL (70-105); Osmolality,Calculated 288 (280-300); Potassium 3.5 mEq/L (3.5-5.1); Sodium 136 mEq/L (136-145); eGFR For Non-African Americans > 60 (> 60)
[2018-05-16] MEDS: *HR* Morphine Sulfate SR (12 HR) 15 MG TABLET.ER PO SCH ×2 (06:15→17:57)
--- NOTE | 2018-05-16 07:39 | Internal Med Progress Note ---
Hospitalist Progress Note - Encounter Date of Encounter: 05/16/18 Time of Encounter: 07:30 - Subjective Interval History: Dyspnea near baseline Small amount of clear sputum Required BiPAP last night No headache, chest pain, dizziness Bedside swallow without aspiration WBC 2.7k Cr 0.9 K 3.5 Troponin 0.11 - Exam Vitals: Temp Pulse Resp BP Pulse Ox 97.8 F 68 22 124/76 98 05/16/18 06:57 05/16/18 06:57 05/16/18 06:57 05/16/18 06:57 05/16/18 06:57 Exam: Awake, alert, not using accessory muscles for breathing moist oral mucosa JVP 12 cm H2O S1, S2, no MRG Bilateral expiratory wheezing, and scattered rhonchi Soft, NT, ND, no guarding or rebound 1-2+ LE edema awake, alert, no focal deficits, no dysarthria or facial droop appropriate mood and behavior - Assessment and Plan (1) HCAP (healthcare-associated pneumonia) Current Visit: Yes Status: Acute (2) CHF (congestive heart failure) Current Visit: No Status: Acute (3) Acute and chronic respiratory failure Current Visit: Yes Status: Acute (4) Hypertension Current Visit: No Status: Chronic DVT Prophylaxis: apixaban - Summary of Assessment and Plan Summary of Assessment and Plan: 77M with metastatic prostate cancer (s/p prostatectomy) to the spine, COPD, CAD with an EF of 50% and BPH presented with dyspnea, lower extremity edema, diarrhea, nausea and dry heaves. Currently receiving chemotherapy with Taxotere , the last of which he received on Friday. # Acute hypoxic resp failure likely due to HCAP - Chest x-ray showed RML and RLL consolidations. Also has new LLL lung nodule. - Bedside swallow: no aspiration - currently on 4 l/nc during day and requiring BiPAP at night, baseline at home is 2 l/nc - Continue vancomycin, Zosyn, follow-up sputum cultures - Cont bronchodilator nebs - Cont prednisone - Pulmonology following, appreciated - BIPAP as needed, wean O2 as tolerated. Will obtain ABG if patient worsens in resp status. # HFpEF - Mild LE edema, will keep on the dry side due to tenuous respiratory status - Cont Lasix IV for now # Mildly elevated troponin - 0.07-0.12, likely due to demand ischemia - Cont ASA - Medical management unless EKG changes or further elevation # Cancer associated pain - Cont home analgesic regimen - On home Prednisone 5 mg daily # Leukopenia - possibly secondary to chemotherapy versus sepsis. Patient received his last dose of Taxotere on Friday. We will treat for possible pneumonia as well as trend CBC. # Anticoagulation: on apixaban, will attempt to clarify the indication # Debility: - PT/OT consult - Time Spent with Patient Total time spent is greater than 50% in coordination of care (as documented) at patient's floor/unit and/or counseling patient: Greater than 35 minutes Plan of Care Discussed with: patient Internal Medicine: Result - Labs CBC & Chem 7: 05/16/18 03:33 05/16/18 03:33 Labs: Short CBC 05/16/18 Range/Units 03:33 WBC 2.7 L (4.3-11.1) K/mcL Hgb 10.4 L (12.9-16.9) g/dL Hct 31.4 L (37.5-50.1) % Plt Count 240 (140-400) K/mcL Neutrophils # 1.7 (1.6-8.9) K/mcL BMP 05/16/18 03:33 Sodium 136 Potassium 3.5 Chloride 96 L Carbon Dioxide 33 H BUN 20 Creatinine 0.92 Glucose 166 H Calcium 8.6 Cardiac Enzymes 05/15/18 05/15/18 Range/Units 07:11 12:39 Troponin I 0.12 H* 0.11 H* (< 0.04) ng/mL Consult Discharge Plan - Plan Referrals: Ramiro Kwan MD [Primary Care Provider] - (2) CHF (congestive heart failure) Qualifiers: Heart failure type: diastolic (4) Hypertension Qualifiers: Hypertension type: essential hypertension Qualified Code(s): I10 - Essential (primary) hypertension
[2018-05-16] MEDS: Apixaban 5 MG TABLET PO SCH ×2 (08:38→20:12)
[2018-05-16] MEDS: levETIRAcetam 250 MG TABLET PO SCH ×2 (08:38→20:12)
[2018-05-16] MEDS: predniSONE 20 MG TABLET PO SCH (08:38)
[2018-05-16] MEDS: Furosemide 20 MG/2 ML VIAL IVP SCH ×2 (08:38→16:45)
[2018-05-16] MEDS: Aspirin Enteric Coated 81 MG Tablet PO SCH (08:38)
--- NOTE | 2018-05-16 09:04 | Electrocardiograph Report ---
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
--- NOTE | 2018-05-16 09:07 | Electrocardiograph Report ---
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
--- NOTE | 2018-05-16 14:07 | Pulmonology Progress Note ---
Date of Encounter: 05/16/18 Time of Encounter: 10:30 Assessment and Plan (1) Acute and chronic respiratory failure Current Visit: Yes Status: Acute Patient has acute on chronic respiratory failure secondary to aspiration pneumonia patient is on antibiotics, bronchodilators, steroids and bronchopulmonary hygiene with conservative management fails) consider bronchoscopy. We will repeat chest x-ray in the morning make sure is not worsening. Qualifiers: Respiratory failure complication: hypoxia Qualified Code(s): J96.21 - Acute and chronic respiratory failure with hypoxia (2) HCAP (healthcare-associated pneumonia) Current Visit: Yes Status: Acute Patient pneumonia is most likely due to aspiration patient needs to have a formal speech consult. To continue broad-spectrum antibiotics. To continue incentive spirometry and AccuPAP. To keep NPO after midnight (3) CHF (congestive heart failure) Current Visit: No Status: Acute acute on chronic diastolic heart failure to continue diuresis . 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 CT imaging showed consistent for aspiration pneumonia with consolidative opacity right middle lobe and right lower lobe patient says his shortness of breath is cough and sputum production is lot better denies any fever or chills or any other constitutional symptoms. Objective PUL Vital signs: Last Vital Signs Temp 98.3 F 05/16/18 10:40 Pulse 58 05/16/18 10:40 Resp 16 05/16/18 11:04 BP 123/75 05/16/18 10:40 Pulse Ox 95 05/16/18 11:04 Auscultation: bilateral: diminished breath sounds (bilateral bibasilar diminshed breadth sounds ), wheezes (scattered wheezes ) Results - Laboratory Findings CBC and BMP: 05/16/18 03:33 05/16/18 03:33 Abnormal lab findings: Abnormal lab results WBC 2.7 K/mcL (4.3-11.1) L 05/16/18 03:33 RBC 3.34 M/mcL (4.19-5.50) L 05/16/18 03:33 Hgb 10.4 g/dL (12.9-16.9) L 05/16/18 03:33 Hct 31.4 % (37.5-50.1) L 05/16/18 03:33 RDW 16.0 % (11.5-14.5) H 05/16/18 03:33 Lymphocytes # 0.3 K/mcL (0.6-4.6) L 05/16/18 03:33 Chloride 96 mEq/L (98-107) L 05/16/18 03:33 Carbon Dioxide 33 mEq/L (23-29) H 05/16/18 03:33 Glucose 166 mg/dL (70-105) H 05/16/18 03:33 POC Glucose 124 mg/dL (70-99) H 05/15/18 17:14 Troponin I 0.11 ng/mL (< 0.04) H* 05/15/18 12:39 B-Natriuretic Peptide 499 pg/mL (Less than 100) H 05/15/18 01:13 Serum Total Protein 5.3 g/dL (6.4-8.9) L 05/15/18 01:20 Albumin 3.0 g/dL (3.5-5.7) L 05/15/18 01:20 Globulin 2.3 g/dL (2.4-3.5) L 05/15/18 01:20 Urine Protein 30 mg/dL (Neg-Trace) H 05/14/18 16:05 Ur Squamous Epith Cells Many per lpf (None-Few) H 05/14/18 16:05 Hyaline Casts Moderate per lpf (None-Few) H 05/14/18 16:05 - Microbiology Findings Microbiology Findings: Microbiology, Last 48 Hours 05/15/18 10:12 Sputum Culture - Final Sputum - Clinical Findings Intake & Output: Intake & Output 05/15/18 05/16/18 05/16/18 23:59 07:59 15:59 Intake Total 940 / 940 100 / 100 600 / 600 Output Total 700 / 700 0 / 0 650 / 650 Balance 240 / 240 100 / 100 -50 / -50 Weight 93.5 kg Consult Discharge Plan - Plan Referrals: Ramiro Kwan MD [Primary Care Provider] -
[2018-05-16] MEDS ORDERED: Potassium Chloride Elixir 20 MEQ/15 ML UDC PO ONE (16:09)
[2018-05-17] MEDS: Piperacillin/Tazobactam 3.375 GM in 0.9 % Sodium Chloride Mini Bag 100 ML IVPB SCH ×3 (01:31→16:36)
[2018-05-17] MEDS: Ipratropium/Albuterol Neb 3 ML IH SCH ×6 (03:43→23:49)
[2018-05-17] MEDS: *HR* Morphine Sulfate SR (12 HR) 15 MG TABLET.ER PO SCH ×2 (05:50→17:50)
[2018-05-17] MEDS: Furosemide 20 MG/2 ML VIAL IVP SCH ×2 (08:25→16:36)
[2018-05-17] MEDS: Apixaban 5 MG TABLET PO SCH ×2 (08:25→20:30)
[2018-05-17] MEDS: levETIRAcetam 250 MG TABLET PO SCH ×2 (08:25→20:30)
[2018-05-17] MEDS: Aspirin Enteric Coated 81 MG Tablet PO SCH (08:25)
[2018-05-17] MEDS: predniSONE 20 MG TABLET PO SCH (08:25)
--- NOTE | 2018-05-17 10:02 | Pulmonology Progress Note ---
Date of Encounter: 05/17/18 Time of Encounter: 10:00 Assessment and Plan (1) Acute and chronic respiratory failure Current Visit: Yes Status: Acute Patient has acute on chronic respiratory failure secondary to aspiration pneumonia patient is on antibiotics, bronchodilators, steroids and bronchopulmonary hygiene with conservative management fails) consider bronchoscopy. 05/17 repeat CXR better aeration some bibasilar atelectasis Was almost back to his baseline to continue total 7 days of antibiotics on discharge pretty well controlled day prednisone taper. We will sign off call with questions. Qualifiers: Respiratory failure complication: hypoxia Qualified Code(s): J96.21 - Acute and chronic respiratory failure with hypoxia (2) HCAP (healthcare-associated pneumonia) Current Visit: Yes Status: Acute Patient pneumonia is most likely due to aspiration patient needs to have a formal speech consult. To continue broad-spectrum antibiotics. To continue incentive spirometry and AccuPAP. Is getting better almost back to his baseline. (3) CHF (congestive heart failure) Current Visit: No Status: Acute acute on chronic diastolic heart failure to continue diuresis . To continue diuresis as tolerated. 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 CT imaging showed consistent for aspiration pneumonia with consolidative opacity right middle lobe and right lower lobe patient says his shortness of breath is cough and sputum production is lot better denies any fever or chills or any other constitutional symptoms. 05/17 patient is doing well chest x-ray looks slightly better but no obvious collapse due to mucous plugging patient is able to cough and brings up sputum production not much cough and sputum production patient is feeling almost back to his baseline denies any chest pain or chest tightness he wants to go home he said Objective PUL Vital signs: Last Vital Signs Temp 98.0 F 05/17/18 05:46 Pulse 67 05/17/18 05:46 Resp 16 05/17/18 07:58 BP 129/71 05/17/18 07:58 Pulse Ox 96 05/17/18 07:58 Auscultation: right: wheezes (scattered ) Gastrointestinal: hypoactive bowel sounds Extremities: other (obese abdomen ) Results - Laboratory Findings CBC and BMP: 05/16/18 03:33 05/17/18 13:02 Abnormal lab findings: Abnormal lab results WBC 2.7 K/mcL (4.3-11.1) L 05/16/18 03:33 RBC 3.34 M/mcL (4.19-5.50) L 05/16/18 03:33 Hgb 10.4 g/dL (12.9-16.9) L 05/16/18 03:33 Hct 31.4 % (37.5-50.1) L 05/16/18 03:33 RDW 16.0 % (11.5-14.5) H 05/16/18 03:33 Lymphocytes # 0.3 K/mcL (0.6-4.6) L 05/16/18 03:33 Chloride 96 mEq/L (98-107) L 05/16/18 03:33 Carbon Dioxide 33 mEq/L (23-29) H 05/16/18 03:33 Glucose 166 mg/dL (70-105) H 05/16/18 03:33 POC Glucose 124 mg/dL (70-99) H 05/15/18 17:14 Troponin I 0.11 ng/mL (< 0.04) H* 05/15/18 12:39 B-Natriuretic Peptide 499 pg/mL (Less than 100) H 05/15/18 01:13 Serum Total Protein 5.3 g/dL (6.4-8.9) L 05/15/18 01:20 Albumin 3.0 g/dL (3.5-5.7) L 05/15/18 01:20 Globulin 2.3 g/dL (2.4-3.5) L 05/15/18 01:20 Urine Protein 30 mg/dL (Neg-Trace) H 05/14/18 16:05 Ur Squamous Epith Cells Many per lpf (None-Few) H 05/14/18 16:05 Hyaline Casts Moderate per lpf (None-Few) H 05/14/18 16:05 - Microbiology Findings Microbiology Findings: Microbiology, Last 48 Hours 05/15/18 10:12 Sputum Culture - Final Sputum - Clinical Findings Intake & Output: Intake & Output 05/16/18 05/17/18 05/17/18 23:59 07:59 15:59 Intake Total 710 / 710 100 / 100 Output Total 800 / 800 0 / 0 Balance -90 / -90 100 / 100 Consult Discharge Plan - Plan Referrals: Ramiro Kwan MD [Primary Care Provider] -
--- NOTE | 2018-05-17 13:19 | Internal Med Progress Note ---
Hospitalist Progress Note - Encounter Date of Encounter: 05/17/18 Time of Encounter: 12:30 - Subjective Interval History: Dyspnea near baseline Small amount of clear sputum with cough No headache, chest pain, dizziness - Exam Vitals: Temp Pulse Resp BP Pulse Ox 98.1 F 66 16 153/89 90 05/17/18 10:45 05/17/18 10:45 05/17/18 11:33 05/17/18 11:33 05/17/18 11:33 Exam: Awake, alert, not using accessory muscles for breathing moist oral mucosa JVP elevated S1, S2, no MRG Bilateral expiratory wheezing, and scattered rhonchi Soft, NT, ND, no guarding or rebound 1+ LE edema awake, alert, no focal deficits, no dysarthria or facial droop appropriate mood and behavior - Assessment and Plan (1) HCAP (healthcare-associated pneumonia) Current Visit: Yes Status: Acute (2) CHF (congestive heart failure) Current Visit: No Status: Acute (3) Acute and chronic respiratory failure Current Visit: Yes Status: Acute (4) Hypertension Current Visit: No Status: Chronic - Summary of Assessment and Plan Summary of Assessment and Plan: 77M with metastatic prostate cancer (s/p prostatectomy) to the spine, COPD, CAD with an EF of 50% and BPH presented with dyspnea, lower extremity edema, diarrhea, nausea and dry heaves. Currently receiving chemotherapy with Taxotere , the last of which he received on Friday. # Acute hypoxic resp failure likely due to HCAP, cannot rule out aspiration - Chest x-ray showed RML and RLL consolidations. Also has new LLL lung nodule. Repeat CXR 05/17 showed improved aeration - Bedside swallow: no choking (cannot rule out silent aspiration) - Formal swallow evaluation pending - currently on 3 l/nc during day and requiring BiPAP at night, baseline at home is 2 l/nc - Continue vancomycin, Zosyn (05/15-current) - Cont bronchodilator nebs - Cont prednisone - Pulmonology following, appreciated, may need bronchoscopy - BIPAP as needed, wean O2 as tolerated # HFpEF - Mild LE edema, will keep on the dry side due to tenuous respiratory status - Negative 1.1 L yesterday - Cont Lasix IV # Atrial fibrillation: Cont apixaban # Mildly elevated troponin - 0.07-0.12, likely due to demand ischemia - Cont ASA - Medical management unless EKG changes or further elevation # Cancer associated pain - Cont home analgesic / opioid regimen - On home Prednisone 5 mg daily # Leukopenia - possibly secondary to chemotherapy versus sepsis. Patient received his last dose of Taxotere on Friday. - monitor # Debility: - PT/OT consult - Time Spent with Patient Total time spent is greater than 50% in coordination of care (as documented) at patient's floor/unit and/or counseling patient: Internal Medicine: Result - Labs CBC & Chem 7: 05/16/18 03:33 05/16/18 03:33 - Impressions Impressions Chest X-Ray 05/17/18 07:30 IMPRESSION: 1. Low lung volumes. 2. Enlarged cardiac silhouette with prominence of the pulmonary vasculature. 3. Patchy bibasilar opacification perhaps mildly improved on the left. D/ / Jamey Rodriguez MD / Jamey Rodriguez MD Interpreting Provider: Jamey Rodriguez MD Consult Discharge Plan - Plan Referrals: Ramiro Kwan MD [Primary Care Provider] - (2) CHF (congestive heart failure) Qualifiers: Heart failure type: diastolic Heart failure chronicity: acute on chronic Qualified Code(s): I50.33 - Acute on chronic diastolic (congestive) heart failure (3) Acute and chronic respiratory failure Qualifiers: Respiratory failure complication: hypoxia Qualified Code(s): J96.21 - Acute and chronic respiratory failure with hypoxia (4) Hypertension Qualifiers: Hypertension type: essential hypertension Qualified Code(s): I10 - Essential (primary) hypertension
[2018-05-17 13:35] LABS: BUN/Creatinine Ratio 21 (6-26); Blood Urea Nitrogen 16 mg/dL (8-23); eGFR For Non-African Americans > 60 (> 60)
[2018-05-18] MEDS: Piperacillin/Tazobactam 3.375 GM in 0.9 % Sodium Chloride Mini Bag 100 ML IVPB SCH ×3 (00:34→16:48)
[2018-05-18] MEDS: Ipratropium/Albuterol Neb 3 ML IH SCH ×6 (03:52→23:14)
[2018-05-18 05:20] LABS: Hematocrit 31.3 % (37.5-50.1); Mean Corpuscular HGB Conc 31.9 g/dL (31.6-35.5); Mean Corpuscular Hemoglobin 30.6 pg (28.0-33.3); Mean Corpuscular Volume 95.7 fL (83.0-100.0); Mean Platelet Volume 9.4 fL (9.4-12.4); Platelet Count 265 K/mcL (140-400); Red Blood Count 3.27 M/mcL (4.19-5.50); Red Cell Distribution Width 16.3 % (11.5-14.5)
[2018-05-18 05:44] LABS: BUN/Creatinine Ratio 22 (6-26); Blood Urea Nitrogen 16 mg/dL (8-23); Calcium 8.8 mg/dL (8.6-10.3); Carbon Dioxide 38 mEq/L (23-29); Chloride 96 mEq/L (98-107); Glucose 90 mg/dL (70-105); Magnesium 1.8 mg/dL (1.6-2.6); Osmolality,Calculated 287 (280-300); Potassium 3.5 mEq/L (3.5-5.1); Sodium 138 mEq/L (136-145); eGFR For Non-African Americans > 60 (> 60)
[2018-05-18] MEDS: *HR* Morphine Sulfate SR (12 HR) 15 MG TABLET.ER PO SCH ×2 (05:54→17:59)
[2018-05-18] MEDS ORDERED: Aminoglycoside Consult 1 EACH MC ONE (08:31)
[2018-05-18] MEDS: Furosemide 20 MG/2 ML VIAL IVP SCH ×2 (09:07→16:48)
[2018-05-18] MEDS: levETIRAcetam 250 MG TABLET PO SCH ×2 (09:08→21:13)
[2018-05-18] MEDS: Apixaban 5 MG TABLET PO SCH ×2 (09:08→21:13)
[2018-05-18] MEDS: predniSONE 20 MG TABLET PO SCH (09:08)
[2018-05-18] MEDS: Aspirin Enteric Coated 81 MG Tablet PO SCH (09:08)
--- NOTE | 2018-05-18 17:27 | Internal Med Progress Note ---
Hospitalist Progress Note - Encounter Date of Encounter: 05/18/18 Time of Encounter: 17:25 - Subjective Interval History: Pt denies fever or chills, he denies CP or worsening SOB. Denies N/V or diarrhea. - Exam Vitals: Temp Pulse Resp BP Pulse Ox 98.5 F 72 18 134/71 93 05/18/18 15:45 05/18/18 15:45 05/18/18 15:45 05/18/18 15:45 05/18/18 15:45 Exam: Awake, alert, not using accessory muscles for breathing moist oral mucosa JVP elevated S1, S2, no MRG Bilateral expiratory wheezing, and scattered rhonchi Soft, NT, ND, no guarding or rebound 1+ LE edema awake, alert, no focal deficits, no dysarthria or facial droop appropriate mood and behavior - Assessment and Plan (1) Acute and chronic respiratory failure Current Visit: Yes Status: Acute Assessment and Plan: Patient has acute on chronic respiratory failure secondary to aspiration pneumonia patient is on antibiotics, bronchodilators, steroids and bronchopulmonary hygiene. Pulmonology on board. 05/17 repeat CXR better aeration some bibasilar atelectasis. Pt is improved and tolerating NC oxygen for now. currently on 3 l/nc during day and requiring BiPAP at night, baseline at home is 2 l/nc (2) Acute on chronic diastolic (congestive) heart failure Current Visit: Yes Status: Acute Assessment and Plan: Acute on chronic diastolic heart failure to continue diuresis. Lasix 20 mg IV BID which will probably switch to PO tomorrow. (3) HCAP (healthcare-associated pneumonia) Current Visit: Yes Status: Acute Assessment and Plan: Chest x-ray showed RML and RLL consolidations. Also has new LLL lung nodule. Repeat CXR 05/17 showed improved aeration. Concern for aspiration PNA. Speech evaluation pending. On Vancomycin and Zosyn (4) Prostate cancer metastatic to bone Current Visit: Yes Status: Acute Assessment and Plan: Pt recently completed chemo, F/U out pt with oncologist as brandyn. (5) Afib Current Visit: Yes Status: Acute Assessment and Plan: on ELiquis DVT Prophylaxis: apixaban - Summary of Assessment and Plan Summary of Assessment and Plan: 77M with metastatic prostate cancer (s/p prostatectomy) to the spine, COPD, CAD with an EF of 50% and BPH presented with dyspnea, lower extremity edema, diarrhea, nausea and dry heaves. Currently receiving chemotherapy with Taxotere , the last of which he received on Friday. # Mildly elevated troponin - 0.07-0.12, likely due to demand ischemia - Cont ASA - Medical management unless EKG changes or further elevation # Cancer associated pain - Cont home analgesic / opioid regimen - On home Prednisone 5 mg daily # Leukopenia - possibly secondary to chemotherapy versus sepsis. Patient received his last dose of Taxotere on Friday. - monitor # Debility: - PT/OT consult - Time Spent with Patient Total time spent is greater than 50% in coordination of care (as documented) at patient's floor/unit and/or counseling patient: Internal Medicine: Result - Labs CBC & Chem 7: 05/18/18 04:46 05/18/18 04:46 Labs: Short CBC 05/18/18 Range/Units 04:46 WBC 3.4 L (4.3-11.1) K/mcL Hgb 10.0 L (12.9-16.9) g/dL Hct 31.3 L (37.5-50.1) % Plt Count 265 (140-400) K/mcL BMP 05/18/18 04:46 Sodium 138 Potassium 3.5 Chloride 96 L Carbon Dioxide 38 H BUN 16 Creatinine 0.73 Glucose 90 Calcium 8.8 Consult Discharge Plan - Plan Referrals: Ramiro Kwan MD [Primary Care Provider] - (1) Acute and chronic respiratory failure Qualifiers: Respiratory failure complication: hypoxia Qualified Code(s): J96.21 - Acute and chronic respiratory failure with hypoxia
[2018-05-19] MEDS: Piperacillin/Tazobactam 3.375 GM in 0.9 % Sodium Chloride Mini Bag 100 ML IVPB SCH ×2 (01:32→09:25)
[2018-05-19] MEDS: Ipratropium/Albuterol Neb 3 ML IH SCH ×6 (03:37→23:22)
[2018-05-19] MEDS: *HR* Morphine Sulfate SR (12 HR) 15 MG TABLET.ER PO SCH ×2 (05:18→18:14)
[2018-05-19] MEDS: Apixaban 5 MG TABLET PO SCH ×2 (09:24→20:24)
[2018-05-19] MEDS: Aspirin Enteric Coated 81 MG Tablet PO SCH (09:24)
[2018-05-19] MEDS: levETIRAcetam 250 MG TABLET PO SCH ×2 (09:24→20:24)
[2018-05-19] MEDS: predniSONE 20 MG TABLET PO SCH (09:24)
[2018-05-19] MEDS: Furosemide 20 MG/2 ML VIAL IVP SCH ×2 (09:25→18:13)
--- NOTE | 2018-05-19 14:34 | Internal Med Progress Note ---
Hospitalist Progress Note - Encounter Date of Encounter: 05/19/18 Time of Encounter: 14:00 - Subjective Interval History: No acute events overnight - Exam Vitals: Temp Pulse Resp BP Pulse Ox 98.6 F 80 16 127/68 96 05/19/18 11:03 05/19/18 11:03 05/19/18 11:19 05/19/18 11:03 05/19/18 11:19 Exam: Awake, alert, not using accessory muscles for breathing moist oral mucosa JVP elevated S1, S2, no MRG Bilateral expiratory wheezing, and scattered rhonchi Soft, NT, ND, no guarding or rebound 1+ LE edema awake, alert, no focal deficits, no dysarthria or facial droop appropriate mood and behavior - Assessment and Plan (1) Acute respiratory failure with hypoxemia Current Visit: Yes Status: Acute Assessment and Plan: Patient has acute on chronic respiratory failure secondary to aspiration pneumonia patient is on antibiotics, bronchodilators, steroids and bronchopulmonary hygiene. Pulmonology on board. 05/17 repeat CXR better aeration some bibasilar atelectasis. Improved. Continue antibiotics to complete a total 7 day course per pulmonary recs. Plan for discharge to rehab once accepted (2) HCAP (healthcare-associated pneumonia) Current Visit: Yes Status: Acute Assessment and Plan: Chest x-ray showed RML and RLL consolidations. Also has new LLL lung nodule. Repeat CXR 05/17 showed improved aeration. Concern for aspiration PNA. Speech evaluation came back WNL. Has completed 6 days of zosyn. Will switch to po levaquin (3) Cancer associated pain Current Visit: No Status: Chronic Assessment and Plan: Continue patient's home analgesic regimen He is also on Prednisone 5 mg daily at home. (4) Anemia Current Visit: Yes Status: Chronic Assessment and Plan: Likely secondary to chronic disease. Hemoglobin stable (5) Prostate cancer Current Visit: No Status: Chronic (6) CHF (congestive heart failure) Current Visit: No Status: Acute Assessment and Plan: Has diastolic dysfunction (EF 50%) with acute worsening. He reports of worsening lower extremity edema. CXR showed vascular congestion, likely pulm edema. BNP is 499, which is above his baseline. Patient received 60 mg of Lasix IV push after arriving to the floor. - Strict I's and O's, daily weights. - Will give 20 mg IV Lasix BID - Fluid restriction (7) Elevated troponin Current Visit: Yes Status: Acute Assessment and Plan: Likely this is demand ischemia. Pt denies any chest pain. No further cardiac workup indicated (8) Leukopenia Current Visit: Yes Status: Acute Assessment and Plan: Leukopenia possibly secondary to chemotherapy versus sepsis. Patient received his last dose of Taxotere on Friday. We will treat for possible pneumonia as well as trend CBC. DVT Prophylaxis: On eliquis - Time Spent with Patient Total time spent is greater than 50% in coordination of care (as documented) at patient's floor/unit and/or counseling patient: Internal Medicine: Result - Labs CBC & Chem 7: 05/18/18 04:46 05/18/18 04:46 Consult Discharge Plan - Plan Referrals: Ramiro Kwan MD [Primary Care Provider] - (4) Anemia Qualifiers: Anemia type: unspecified type Qualified Code(s): D64.9 - Anemia, unspecified (6) CHF (congestive heart failure) Qualifiers: Heart failure type: diastolic Heart failure chronicity: acute on chronic Qualified Code(s): I50.33 - Acute on chronic diastolic (congestive) heart failure (8) Leukopenia Qualifiers: Leukopenia type: unspecified Qualified Code(s): D72.819 - Decreased white blood cell count, unspecified
[2018-05-20] MEDS: Ipratropium/Albuterol Neb 3 ML IH SCH ×7 (03:46→23:14)
[2018-05-20] MEDS: *HR* Morphine Sulfate SR (12 HR) 15 MG TABLET.ER PO SCH ×2 (05:45→17:35)
--- NOTE | 2018-05-20 08:20 | Discharge Summary ---
Date of Encounter: 05/20/18 Time of Encounter: 08:00 - Discharge Diagnosis (1) Acute respiratory failure with hypoxemia Priority: Primary Status: Acute Assessment and Plan: 77 year old male metastatic prostate cancer (s/p prostatectomy) to the spine, COPD, CAD with an EF of 50% and BPH with a chief complaint of shortness of breath. Patient reports that he has been feeling unwell for the past week with reported episodes of diarrhea, nausea and dry heaves. Patient has a history of chronic diarrhea is currently receiving chemotherapy with Taxotere, the last of which she received on Friday. Patient reported on day of admission to his oncologist for an unscheduled visit due to worsening edema in the upper and lower extremities, shortness of breath, wheezing and weakness. Chest x-ray in the ER showed increasing consolidative changes involving the right middle and right lower lobes. With new left lower lobe lung nodule He was assessed with acute hypoxic respiratory failure likely secondary due to health care associated pneumonia from viral and/ or bacterial causes and acute worsening of diastolic CHF. He was started broad spectrum antibiotics, BIPAP as needed and IV lasix.He was seen by pulmonary who agreed with antibiotic regimen and recommended a speech therapy consult to rule out aspiration pneumonia. He was seen by speech therapy who performed a swallow evaluation and determined he has no significant difficulties swallowing. He completed a 7 day course of antibiotics per pulmonary recs and his shortness of breath resolved. He was seen by physical therapy who recommended rehab for strengthening. He will be discharged on lasix BID as well for his diastolic CHF. He was discharged to rehab in a stable condition. 35 minutes was spent discharging this patient (2) HCAP (healthcare-associated pneumonia) Priority: Primary Status: Acute (3) Cancer associated pain Priority: Secondary Status: Chronic (4) Anemia Priority: Secondary Status: Chronic Qualifiers: Anemia type: unspecified type Qualified Code(s): D64.9 - Anemia, unspecified (5) Prostate cancer Priority: Secondary Status: Chronic (6) CHF (congestive heart failure) Priority: Secondary Status: Acute Qualifiers: Heart failure type: diastolic Heart failure chronicity: acute on chronic Qualified Code(s): I50.33 - Acute on chronic diastolic (congestive) heart failure (7) Elevated troponin Priority: Secondary Status: Acute (8) Leukopenia Priority: Secondary Status: Acute Qualifiers: Leukopenia type: unspecified Qualified Code(s): D72.819 - Decreased white blood cell count, unspecified Hospital course: Mr. Grant is a 77 year old male - Time Spent with Patient Total time spent providing and/or coordinating discharge services: - Discharge Medications Prescriptions: Furosemide [Lasix] 20 mg PO BID #60 tablet Home Medications: Aspirin [Lo-Dose Aspirin EC] 81 mg PO DAILY 01/06/17 [History] Omeprazole [PriLOSEC] 20 mg PO DAILY #30 capsule. 02/06/17 [Rx] Carisoprodol [Soma] 350 mg PO BID PRN #60 05/09/17 [Rx] Cyanocobalamin (Vitamin B-12) [Vitamin B12] 1,000 mcg PO DAILY #30 tablet [Rx] Apixaban [Eliquis] 5 mg PO BID 12/03/17 [History] Calcium Citrate 200 mg PO DAILY 12/03/17 [History] Donepezil [Aricept] 10 mg PO HS 12/03/17 [History] Ergocalciferol (VITAMIN D2) [Vitamin D2] 8,000 unit PO DAILY 12/03/17 [History] Ezetimibe [Zetia] 10 mg PO DAILY 12/03/17 [History] Pnv95/Ferrous Fumarate/FA [ Vitamin Tablet] 1 each PO DAILY 12/03/17 [ History] predniSONE [PredniSONE] 5 mg PO BIDWM #60 tablet 01/06/18 [Rx] Prosteon 2 tab PO DAILY 01/14/18 [History] Dexamethasone [Decadron] 2 tab PO AD #36 tab 02/02/18 [Rx] Promethazine [Phenergan] 25 mg PO Q6HR PRN #30 tablet 03/09/18 [Rx] OxyCODONE Immed Rel [Roxicodone 10 MG] 10 mg PO Q6H PRN 30 Days #120 tab [Rx] Ondansetron ODT [Zofran ODT] 4 mg PO Q6H PRN #10 tab.rapdis 05/11/18 [Rx] Docusate Sodium [Colace] 100 mg PO DAILY PRN 05/14/18 [History] GuaiFENesin ER [Mucinex] 600 mg PO BID PRN 05/14/18 [History] LevETIRAcetam [Roweepra] 500 mg PO BID 05/14/18 [History] Morphine Sulfate SR (12 HR) [MS Contin] 15 mg PO Q12HR 05/14/18 [History] Sennosides [Senna] 17.2 mg PO HS PRN 05/14/18 [History] Furosemide [Lasix] 20 mg PO BID #60 tablet 05/20/18 [Rx] Allergies/Adverse Reactions: 3 Allergy/AdvReac Type Severity Reaction Status Date / Time atorvastatin AdvReac Muscle Pain Verified 05/14/18 19:39 simvastatin AdvReac Muscle Pain Verified 05/14/18 19:39 Date of admission: 05/15/18 01:01 Primary care physician: Ramiro Kwan MD Consults: 05/15/18 05:38 Consult to Pulmonology [CONS] Routine Consulting Provider: [facility] Reason for Consult: Acute hypoxemic resp failure 2/2 to possible PNA with suspicious findngs concerniing for metastatic disease. Call Completed: No 05/16/18 16:07 Consult to Occupational Therapy [CONS] Routine Comment: Evaluate, develop and implement POC Reason for Consult: debility after hospitalization, please assess functional status Does patient have active BEDREST order?: No Is patient medically & hemodynamically stable?: Yes Consult to Physical Therapy [CONS] Routine Comment: Evaluate, develop and implement POC Reason for Consult: debility after hospitalization, please assess functional status Does patient have active BEDREST order?: No Is patient medically & hemodynamically stable?: Yes 05/19/18 10:32 Consult to Hardboard Panel [employer]inter [CONS] Routine Reason for SW Consult: set up snf - Constitutional Vitals: Temp Pulse Resp BP Pulse Ox 98.2 F 63 16 155/87 93 05/20/18 03:00 05/20/18 06:39 05/20/18 06:39 05/20/18 06:39 05/20/18 06:39 Exam: Awake, alert, not using accessory muscles for breathing moist oral mucosa JVP elevated S1, S2, no MRG Bilateral expiratory wheezing, and scattered rhonchi Soft, NT, ND, no guarding or rebound 1+ LE edema awake, alert, no focal deficits, no dysarthria or facial droop appropriate mood and behavior - Patient Status Disposition: Transfer SNF Condition: Good - Discharge Instructions Follow Up With: Ramiro Kwan MD [Primary Care Provider] -
[2018-05-20] MEDS: Apixaban 5 MG TABLET PO SCH ×2 (09:10→21:25)
[2018-05-20] MEDS: levETIRAcetam 250 MG TABLET PO SCH ×2 (09:10→21:25)
[2018-05-20] MEDS: levoFLOXacin 750 MG TABLET PO SCH (09:10)
[2018-05-20] MEDS: Aspirin Enteric Coated 81 MG Tablet PO SCH (09:10)
[2018-05-20] MEDS: predniSONE 20 MG TABLET PO SCH (09:11)
[2018-05-20] MEDS: Furosemide 20 MG/2 ML VIAL IVP SCH ×2 (09:11→17:35)
[2018-05-20] MEDS: Sennosides 8.6 MG TABLET PO PRN (09:13)
[2018-05-20] MEDS ORDERED: Lactulose Oral Soln 20 GM/30 ML UDC PO ONE (13:03)
--- NOTE | 2018-05-20 15:34 | Physician Discharge Referral ---
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 (4) Anemia Priority: Secondary Status: Chronic (5) Prostate cancer Priority: Secondary Status: Chronic (6) CHF (congestive heart failure) Priority: Primary Status: Acute (7) Elevated troponin Status: Acute (8) Leukopenia Status: Acute - Transfer Medications Prescriptions: Furosemide [Lasix] 20 mg PO BID #60 tablet Home Medications: Aspirin [Lo-Dose Aspirin EC] 81 mg PO DAILY 01/06/17 [History] Omeprazole [PriLOSEC] 20 mg PO DAILY #30 capsule.dr 02/06/17 [Rx] Carisoprodol [Soma] 350 mg PO BID PRN #60 05/09/17 [Rx] Cyanocobalamin (Vitamin B-12) [Vitamin B12] 1,000 mcg PO DAILY #30 tablet [Rx] Apixaban [Eliquis] 5 mg PO BID 12/03/17 [History] Calcium Citrate 200 mg PO DAILY 12/03/17 [History] Donepezil [Aricept] 10 mg PO HS 12/03/17 [History] Ergocalciferol (VITAMIN D2) [Vitamin D2] 8,000 unit PO DAILY 12/03/17 [History] Ezetimibe [Zetia] 10 mg PO DAILY 12/03/17 [History] Pnv95/Ferrous Fumarate/FA [ Vitamin Tablet] 1 each PO DAILY 12/03/17 [ History] predniSONE [PredniSONE] 5 mg PO BIDWM #60 tablet 01/06/18 [Rx] Prosteon 2 tab PO DAILY 01/14/18 [History] Dexamethasone [Decadron] 2 tab PO AD #36 tab 02/02/18 [Rx] Promethazine [Phenergan] 25 mg PO Q6HR PRN #30 tablet 03/09/18 [Rx] OxyCODONE Immed Rel [Roxicodone 10 MG] 10 mg PO Q6H PRN 30 Days #120 tab [Rx] Ondansetron ODT [Zofran ODT] 4 mg PO Q6H PRN #10 tab.rapdis 05/11/18 [Rx] Docusate Sodium [Colace] 100 mg PO DAILY PRN 05/14/18 [History] GuaiFENesin ER [Mucinex] 600 mg PO BID PRN 05/14/18 [History] LevETIRAcetam [Roweepra] 500 mg PO BID 05/14/18 [History] Morphine Sulfate SR (12 HR) [MS Contin] 15 mg PO Q12HR 05/14/18 [History] Sennosides [Senna] 17.2 mg PO HS PRN 05/14/18 [History] Furosemide [Lasix] 20 mg PO BID #60 tablet 05/20/18 [Rx] Allergies/Adverse Reactions: 3 Allergy/AdvReac Type Severity Reaction Status Date / Time atorvastatin AdvReac Muscle Pain Verified 05/14/18 19:39 simvastatin AdvReac Muscle Pain Verified 05/14/18 19:39 - Respiratory Orders Smoking Cessation: Smoking cessation has been advised. For more information, call the [facility] [employer] Quit Line at 4-520-SZPC-NOW. - Mobility Orders Ambulate - Rehabiliation Orders Rehab Potential: Good Rehab Orders: Evaluation for Physical Therapy - Diet Orders Cardiac CERTIFICATION: I certify that the transfer of the above named patient to an Extended Care Facility is necessary for the continuing treatment of the diagnosis listed. The above information is true and accurate reflection of patient's current condition. Confidential - Redisclosure prohibited without a patient's written consent.
[2018-05-21] MEDS: Ipratropium/Albuterol Neb 3 ML IH SCH ×4 (04:52→16:14)
[2018-05-21] MEDS: *HR* Morphine Sulfate SR (12 HR) 15 MG TABLET.ER PO SCH (06:52)
[2018-05-21] MEDS: predniSONE 20 MG TABLET PO SCH (08:59)
[2018-05-21] MEDS: levoFLOXacin 750 MG TABLET PO SCH (08:59)
[2018-05-21] MEDS: levETIRAcetam 250 MG TABLET PO SCH (08:59)
[2018-05-21] MEDS: Apixaban 5 MG TABLET PO SCH (08:59)
[2018-05-21] MEDS: Sennosides 8.6 MG TABLET PO PRN (08:59)
[2018-05-21] MEDS: Aspirin Enteric Coated 81 MG Tablet PO SCH (08:59)
[2018-05-21] MEDS: Furosemide 20 MG/2 ML VIAL IVP SCH ×2 (09:00→09:02)
[2018-05-21] MEDS ORDERED: Milk and Molasses Enema 200 ML RC ONE (11:02)
--- NOTE | 2018-05-21 11:03 | Internal Med Progress Note ---
Hospitalist Progress Note - Encounter Date of Encounter: 05/21/18 Time of Encounter: 10:00 - Subjective Interval History: No acute events overnight - Exam Vitals: Temp Pulse Resp BP Pulse Ox 98.5 F 61 14 161/89 93 05/21/18 07:43 05/21/18 07:43 05/21/18 07:43 05/21/18 07:43 05/21/18 07:43 Exam: Awake, alert, not using accessory muscles for breathing moist oral mucosa JVP elevated S1, S2, no MRG Bilateral expiratory wheezing, and scattered rhonchi Soft, NT, ND, no guarding or rebound 1+ LE edema awake, alert, no focal deficits, no dysarthria or facial droop appropriate mood and behavior - Assessment and Plan (1) Acute respiratory failure with hypoxemia Current Visit: Yes Status: Acute Assessment and Plan: 77 year old male metastatic prostate cancer (s/p prostatectomy) to the spine, COPD, CAD with an EF of 50% and BPH with a chief complaint of shortness of breath. Patient reports that he has been feeling unwell for the past week with reported episodes of diarrhea, nausea and dry heaves. Patient has a history of chronic diarrhea is currently receiving chemotherapy with Taxotere, the last of which she received on Friday. Patient reported on day of admission to his oncologist for an unscheduled visit due to worsening edema in the upper and lower extremities, shortness of breath, wheezing and weakness. Chest x-ray in the ER showed increasing consolidative changes involving the right middle and right lower lobes. With new left lower lobe lung nodule He was assessed with acute hypoxic respiratory failure likely secondary due to health care associated pneumonia from viral and/ or bacterial causes and acute worsening of diastolic CHF. He was started broad spectrum antibiotics, BIPAP as needed and IV lasix.He was seen by pulmonary who agreed with antibiotic regimen and recommended a speech therapy consult to rule out aspiration pneumonia. He was seen by speech therapy who performed a swallow evaluation and determined he has no significant difficulties swallowing. He completed a 7 day course of antibiotics per pulmonary recs and his shortness of breath resolved. He was seen by physical therapy who recommended rehab for strengthening. He will be discharged on lasix BID as well for his diastolic CHF. He was discharged to rehab in a stable condition. . Discharge was held overnight as patient complained of not having had a bowel movement in a couple of days. KUB done overnight showed no evidence of bowel obstruction. Will give enema and proceed with discharge today (2) HCAP (healthcare-associated pneumonia) Current Visit: Yes Status: Acute Assessment and Plan: Chest x-ray showed RML and RLL consolidations. Also has new LLL lung nodule. Repeat CXR 05/17 showed improved aeration. Concern for aspiration PNA. Speech evaluation came back WNL. Has completed 6 days of zosyn. Will switch to po levaquin (3) Cancer associated pain Current Visit: No Status: Chronic Assessment and Plan: Continue patient's home analgesic regimen He is also on Prednisone 5 mg daily at home. (4) Anemia Current Visit: Yes Status: Chronic Assessment and Plan: Likely secondary to chronic disease. Hemoglobin stable (5) Prostate cancer Current Visit: No Status: Chronic (6) CHF (congestive heart failure) Current Visit: No Status: Acute Assessment and Plan: Has diastolic dysfunction (EF 50%) with acute worsening. He reports of worsening lower extremity edema. CXR showed vascular congestion, likely pulm edema. BNP is 499, which is above his baseline. Patient received 60 mg of Lasix IV push after arriving to the floor. - Strict I's and O's, daily weights. - Will give 20 mg IV Lasix BID - Fluid restriction (7) Elevated troponin Current Visit: Yes Status: Acute Assessment and Plan: Likely this is demand ischemia. Pt denies any chest pain. No further cardiac workup indicated (8) Leukopenia Current Visit: Yes Status: Acute Assessment and Plan: Leukopenia possibly secondary to chemotherapy versus sepsis. Patient received his last dose of Taxotere on Friday. We will treat for possible pneumonia as well as trend CBC. - Time Spent with Patient Total time spent is greater than 50% in coordination of care (as documented) at patient's floor/unit and/or counseling patient: Internal Medicine: Result - Labs CBC & Chem 7: 05/18/18 04:46 05/18/18 04:46 Consult Discharge Plan - Plan Referrals: Ramiro Kwan MD [Primary Care Provider] - Prescriptions: Furosemide [Lasix] 20 mg PO BID #60 tablet (4) Anemia Qualifiers: Anemia type: unspecified type Qualified Code(s): D64.9 - Anemia, unspecified (6) CHF (congestive heart failure) Qualifiers: Heart failure type: diastolic Heart failure chronicity: acute on chronic Qualified Code(s): I50.33 - Acute on chronic diastolic (congestive) heart failure (8) Leukopenia Qualifiers: Leukopenia type: unspecified Qualified Code(s): D72.819 - Decreased white blood cell count, unspecified
[2018-05-21 11:07] VITALS: BP 121/70
[2018-05-21] MEDS: *HR* OxyCODONE Immed Rel 5 MG TABLET PO PRN (15:32)
[2018-05-21] MEDS ORDERED: Furosemide 20 MG TABLET PO SCH (17:00)
== END 2018-05-21 19:06 | DRG 193 ==
LOC: EMEROOARM 14:16 → 3ANU 14:16 → SUATTDRO 05-15 01:01
PROVIDERS: ADMIT Pediatrics; ATTEND Student in an Organized Health Care Education/Training Program